=== PATIENT | female | born 1965 | race Two or more races ===

== ENCOUNTER 2020-06-14 04:14 | Day surgery (SDC) | payer BC, OTHER ==
[2020-06-13 15:40] VITALS: BMI 33.3
[2020-06-14] MEDS ORDERED: DEXAMETHASONE SOD PHOSPHATE 4 MG/1 ML VIAL ONE (07:24)
[2020-06-14] MEDS ORDERED: KETOROLAC TROMETHAMINE 30 MG/1 ML VIAL ONE (07:24)
[2020-06-14] MEDS ORDERED: ONDANSETRON 4 MG/2 ML VIAL ONE (07:24)
[2020-06-14] MEDS ORDERED: MIDAZOLAM HCL 2 MG/2 ML SINGLE DOSE VIAL ONE (07:25)
[2020-06-14] MEDS ORDERED: PROPOFOL 20 ML ONE ×3 (07:25→07:42)
[2020-06-14] MEDS ORDERED: LACTATED RINGERS SOLUTION 1,000 ML IV SCH (07:30)
[2020-06-14] MEDS ORDERED: oxyCODONE HCL 5 MG TABLET PO PRN ×2 (07:30→07:40)
[2020-06-14] MEDS ORDERED: ONDANSETRON 4 MG/2 ML VIAL IVPUSH PRN ×2 (07:30→07:40)
[2020-06-14] MEDS ORDERED: PROMETHAZINE HCL 25 MG/1 ML VIAL IVPUSH PRN (07:30)
[2020-06-14] MEDS ORDERED: IBUPROFEN 600 MG TABLET (FP) PO PRN (07:40)
[2020-06-14] MEDS ORDERED: IBUPROFEN 800 MG/8 ML IJ IVPB PRN (07:40)
[2020-06-14] MEDS ORDERED: LIDOCAINE HCL/PF 2% SDV 5ML VIAL ONE (07:42)
[2020-06-14] MEDS ORDERED: ELECTROLYTE-148 SOLN 1,000 ML IV SCH (07:45)
[2020-06-14 10:26] VITALS: TEMP 97.8
[2020-06-14] MEDS ORDERED: IBUPROFEN 600 MG TABLET (FP) PO ONE (10:54)
[2020-06-14 11:57] VITALS: BP 140/80; PULSE 88
== END 2020-06-14 11:20 | disposition home or self-care (01) ==
LOC: JASU-SURG 04:14
PROVIDERS: ATTEND Obstetrics & Gynecology
PROC: 0UJD8ZZ Inspection of Uterus and Cervix, Via Natural or Artificial Opening Endoscopic (ICD-10-PCS; 2020-06-14)
PROC: 0UB97ZX Excision of Uterus, Via Natural or Artificial Opening, Diagnostic (ICD-10-PCS; principal; 2020-06-14 07:30)
PROC: 0UDB7ZX Extraction of Endometrium, Via Natural or Artificial Opening, Diagnostic (ICD-10-PCS; 2020-06-14 07:30)
DX: N84.0 Polyp of corpus uteri (principal)
CPT/HCPCS: 86850; 86900; 86901; 86922; 88305-TC; 94760